=== PATIENT | female | born 1940 | race Caucasian/White ===

== ENCOUNTER 2017-12-05 16:54 | Emergency (ER) | payer MEDICARE ==
[2017-12-05 17:46] LABS: BASO % 0.4 % (0-6); EOS % 3.2 % (0-6); GRAN % 58.5 % (47-80); HEMATOCRIT 37.3 % (35.0-47.0); HEMOGLOBIN 12.9 gm/dl (11.6-16.0); LYMPH % 27.8 % (16-45); MEAN CELL VOLUME 97.1 fl (81-97); MEAN CORPUSCULAR HEMOGLOBIN 33.6 pg (27-33); MEAN CORPUSCULAR HGB CONC 34.6 g/dl (32-36); MEAN PLATELET VOLUME 9.6 fl (7.4-10.4); MONO % 10.1 % (0-9); PLATELET COUNT 365 K/uL (130-400); RED BLOOD COUNT 3.84 M/uL (3.80-5.40); RED CELL DISTRIBUTION WIDTH 12.4 % (11.5-14.5); WHITE BLOOD COUNT W/O DIFF 8.5 K/uL (4.2-12.2)
[2017-12-05 18:02] LABS: BLOOD UREA NITROGEN 15 mg/dL (8-23); CREATININE 0.6 mg/dL (0.5-0.9); EST GLOMERULAR FILTRATION RATE > 60 mL/min
[2017-12-05 18:05] LABS: GLUCOSE,RANDOM 112 mg/dL (74-109)
[2017-12-05] MEDS ORDERED: ACETAMINOPHEN 325 MG TAB PO ONE (18:19)
--- NOTE | 2017-12-05 19:02 | Emergency Department Record ---
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 Time Seen by Provider: 12/05/17 17:05 Mode of Arrival: Ambulatory - History of Present Illness Initial Comments: fall and hit a table with her head and has a right forehead laceration with large hematoma Onset/Timin -: Minutes(s) Fall From: Standing When Fall Occurred: Just prior to arrival Fall Witnessed: No Place Fall Occurred: Home Loss of Consciousness: None Prolonged Down Time?: No Symptoms Prior to Fall: None Location: Head, Back Severity: Mild Severity scale (1-10): 2 Associated Symptoms: Denies - Laura Coma Scale Eye Response: (4) Open spontaneously Motor Response: (6) Obeys commands Verbal Response: (5) Oriented [place] Total: 15 - Related Data Previous Rx's Medication Instructions Recorded Ondansetron [Zofran Odt] 4 mg SL .Q4-6H PRN #10 tab.rapdis 07/02/16 Allergies Allergy/AdvReac Type Severity Reaction Status Date / Time No Known Drug Allergies Allergy Verified 12/05/17 17:46 Travel Screening - Travel/Exposure Within Last 30 Days Have you traveled within the last 30 days?: No Review of Systems Reviewed: No additional complaints except as noted below Constitutional: Reports: As per HPI. Denies: Chills, Fever, Malaise, Night sweats, Weakness, Weight change Eyes: Reports: As per HPI. Denies: Eye discharge, Eye pain, Photophobia, Vision change ENT: Reports: As per HPI. Denies: Congestion, Dental pain, Ear pain, Epistaxis , Hearing loss, Throat pain Respiratory: Reports: As per HPI. Denies: Cough, Dyspnea, Hemoptysis, Stridor, Wheezes Cardiovascular: Reports: As per HPI. Denies: Arrhythmia, Chest pain, Dyspnea on exertion, Edema, Murmurs, Orthopnea, Palpitations, Paroxysmal nocturnal dyspnea, Rheumatic Fever, Syncope Endocrine: Reports: As per HPI. Denies: Fatigue, Heat or cold intolerance, Polydipsia, Polyuria Gastrointestinal: Reports: As per HPI. Denies: Abdominal pain, Constipation, Diarrhea, Hematemesis, Hematochezia, Melena, Nausea, Vomiting Genitourinary: Reports: As per HPI. Denies: Abnormal menses, Discharge, Dyspareunia, Dysuria, Frequency, Hematuria, Incontinence, Retention, Urgency Musculoskeletal: Reports: As per HPI. Denies: Arthralgia, Back pain, Gout, Joint swelling, Myalgia, Neck pain Skin: Reports: As per HPI. Denies: Bruising, Change in color, Change in hair/ nails, Lesions, Pruritus, Rash Neurological: Reports: As per HPI. Denies: Abnormal gait, Confusion, Headache, Numbness, Paresthesias, Seizure, Tingling, Tremors, Vertigo, Weakness Psychiatric: Reports: As per HPI. Denies: Anxiety, Auditory hallucinations, Depression, Homicidal thoughts, Suicidal thoughts, Visual hallucinations Hematological/Lymphatic: Reports: As per HPI. Denies: Anemia, Blood Clots, Easy bleeding, Easy bruising, Swollen glands Past Medical History - SOCIAL HISTORY Smoking Status: Never smoker Alcohol Use: None Drug Use: None - RESPIRATORY Hx Respiratory Disorders: No - CARDIOVASCULAR Hx Cardio Disorders: Yes Hx Abnormal EKG: Yes Hx Cardiac Cath: Yes Hx Heart Attack: Yes Hx Hypertension: Yes Comment:: high cholesterol - NEURO Hx Neuro Disorders: No - GI Hx GI Disorders: No - Hx Genitourinary Disorders: Yes Hx UTI: Yes - ENDOCRINE Hx Endocrine Disorders: Yes Hx Thyroid Disease: Yes (hypo) - MUSCULOSKELETAL Hx Musculoskeletal Disorders: No - PSYCH Hx Psych Problems: No - HEMATOLOGY/ONCOLOGY Hx Hematology/Oncology Disorders: Yes Hx Cancer: Yes (skin) Hx Chemotherapy: No Hx Radiation Therapy: No Family Medical History Any Significant Family History?: Yes Hx Cancer: Mother, Brother/Sister Hx Heart Disease: Mother, Brother/Sister Hx Stroke: Father Physical Exam - General General Appearance: Alert, Oriented x3, Cooperative, No acute distress - Head Head exam: Normal inspection - Eye Eye exam: Normal appearance, PERRL Pupils: Normal accommodation - ENT ENT exam: Normal exam, Mucous membranes moist, Normal external ear exam, Normal orophraynx, TM's normal bilaterally Ear exam: Normal external inspection. negative: External canal tenderness Nasal Exam: Normal inspection. negative: Discharge, Sinus tenderness Mouth exam: Normal external inspection, Tongue normal Teeth exam: Normal inspection. negative: Dental caries Throat exam: Normal inspection. negative: Tonsillar erythema, Tonsillar exudate - Neck Neck exam: Normal inspection, Full ROM. negative: Tenderness - Respiratory Respiratory exam: Normal lung sounds bilaterally. negative: Respiratory distress - Cardiovascular Cardiovascular Exam: Regular rate, Normal rhythm, Normal heart sounds - GI/Abdominal GI/Abdominal exam: Soft, Normal bowel sounds. negative: Tenderness - Rectal Rectal exam: Deferred - exam: Deferred - Extremities Extremities exam: Normal inspection, Full ROM, Normal capillary refill. negative: Tenderness - Back Back exam: Reports: Normal inspection, Full ROM. Denies: Muscle spasm, Rash noted, Tenderness - Neurological Neurological exam: Alert, Normal gait, Oriented X3, Reflexes normal - Psychiatric Psychiatric exam: Normal affect, Normal mood - Skin Skin exam: Other (3 inch laceration of the left forehead) Course Vital Signs 12/05/17 17:49 Temperature 98.6 F Pulse Rate 91 H Respiratory 16 Rate Blood Pressure 175/96 Pulse Ox 94 L - Reevaluation(s) Reevaluation #1: 12/05/17 18:58 complicated laceration of forehead. 3 inches 1% lidocaine with epi cleaned with shurclens repaired with 5.0 ethilon times 7 sutures Medical Decision Making - Data Complexity MDM Data: X-Ray Ordered and/or Reviewed (CT negative) - Lab Data Result diagrams: 12/05/17 17:30 12/05/17 17:30 Lab Results 12/05/17 12/05/17 Range/Units 17:30 17:30 WBC 8.5 (4.2-12.2) K/uL RBC 3.84 (3.80-5.40) M/uL Hgb 12.9 (11.6-16.0) gm/dl Hct 37.3 (35.0-47.0) % MCV 97.1 H (81-97) fl MCH 33.6 H (27-33) pg MCHC 34.6 (32-36) g/dl RDW 12.4 (11.5-14.5) % Plt Count 365 (130-400) K/uL MPV 9.6 (7.4-10.4) fl Gran % 58.5 (47-80) % Lymphocytes % 27.8 (16-45) % Monocytes % 10.1 H (0-9) % Eosinophils % 3.2 (0-6) % Basophils % 0.4 (0-6) % Sodium 139 (136-145) mmol/L Potassium 4.1 (3.4-4.5) mmol/L Chloride 101 (98-107) mmol/L Carbon Dioxide 23.0 (22-29) mmol/L Anion Gap 15.0 (7-16) BUN 15 (8-23) mg/dL Creatinine 0.6 (0.5-0.9) mg/dL Estimated GFR > 60 mL/min Random Glucose 112 H (74-109) mg/dL Calcium 9.1 (8.8-10.2) mg/dL Disposition Clinical Impression: Laceration of face Qualifiers: Encounter type: initial encounter Qualified Code(s): S01.81XA - Laceration without foreign body of other part of head, initial encounter Contusion of head Qualifiers: Encounter type: initial encounter Contusion of head detail: other part of head Qualified Code(s): S00.83XA - Contusion of other part of head, initial encounter Disposition: Home, Self-Care Condition: (1) Good Instructions: Laceration (ED), Head Injury (ED) Additional Instructions: tylenol for pain sutures out in 10 days Forms: Patient Portal Access Time of Disposition: 19:04 Quality - Quality Measures Quality Measures: N/A - Blood Pressure Screening Does Patient Have Any of the Following: No Blood Pressure Classification: Hypertensive Reading Systolic Measurement: 175 Diastolic Measurement: 96 Screening for High Blood Pressure: < First Hypertensive BP, F/U Documented > [ G8950] First Hypertensive Follow-up Interventions: Referral to alternative/primary care provider.
--- NOTE | 2017-12-06 07:33 | CT SCAN REPORT ---
EXAM: CT OF THE BRAIN WITHOUT CONTRAST HISTORY: INJURY. TECHNIQUE: Sequential axial images were obtained from the foramen magnum to the vertex without contrast administration. FINDINGS: The brain volume is normal. There is no large territorial infarct, hemorrhage, mass effect, or midline shift. No extraaxial fluid collection. There is a large left frontal scalp hematoma. No underlying osseous abnormality. IMPRESSION: 1. NO ACUTE INTRACRANIAL ABNORMALITY IS APPRECIATED. 2. LARGE LEFT FRONTAL SCALP HEMATOMA. JOB NUMBER: [id number] MTDD
--- NOTE | 2017-12-06 07:40 | CT SCAN REPORT ---
EXAM: CT OF THE CERVICAL SPINE WITHOUT CONTRAST HISTORY: TRAUMA. TECHNIQUE: Sequential axial images were obtained through the cervical spine without intravenous contrast administration. Sagittal and coronal reformatted images were performed. FINDINGS: There is multilevel degenerative change. There is minimal anterolisthesis of C3 in respect to C4. This is likely on a degenerative basis. The prevertebral soft tissues are normal. The airway is patent. IMPRESSION: 1. MULTILEVEL DEGENERATIVE CHANGE. MINIMAL ANTEROLISTHESIS OF C3 IN RESPECT TO C4. THIS IS LIKELY ON A DEGENERATIVE BASIS. NO EVIDENCE OF FRACTURE OR PERCHED FACET. 2. NOT MENTIONED ABOVE IS MINIMAL BIAPICAL PLEURAL THICKENING. JOB NUMBER: [id number] MTDD
--- NOTE | 2017-12-06 07:48 | CT SCAN REPORT ---
EXAM: CT OF THE CHEST, ABDOMEN AND PELVIS HISTORY: TRAUMA. TECHNIQUE: Sequential axial images were obtained from the thoracic inlet through the ischiorectal fossa without intravenous or oral contrast administration. FINDINGS: CT OF THE CHEST: The thoracic aorta appears normal. There is minimal atheromatous change. The heart and pericardium appears grossly unremarkable. No pericardial effusion. There is a moderate to large sliding type hiatal hernia. No infiltrate or pleural effusion. No pneumothorax. No rib fracture deformity. The thoracic spine is intact. The sternum is intact. CT OF THE ABDOMEN AND PELVIS: The nonopacified liver appears normal. The pancreas and spleen appear normal. The adrenal glands and kidneys appear normal. No CT findings suggestive of obstructive uropathy. The urinary bladder appears normal. The uterus and adnexal structures are normal. The small bowel appears normal. The colon appears normal. There is sigmoid colon diverticulosis. No evidence of diverticulitis. There are large low density lesions in the sacral region. These likely represent perineural diverticula. There is multilevel degenerative change of the lumbar spine. There is a scoliotic curvature. IMPRESSION: 1. NO ACUTE INTRATHORACIC DISEASE PROCESS. 2. MODERATE SLIDING TYPE HIATAL HERNIA. 3. MILD BIAPICAL PLEURAL THICKENING. 4. NO ACUTE ABDOMINAL OR PELVIC DISEASE PROCESS IS APPRECIATED. 5. MODERATE SLIDING TYPE HIATAL HERNIA. 6. LARGE CYSTIC LESIONS IN THE SACRAL FORAMINA LIKELY RELATED TO PERINEURAL DIVERTICULA. 7. SIGMOID COLON DIVERTICULOSIS WITHOUT EVIDENCE OF DIVERTICULITIS. 8. MULTILEVEL DEGENERATIVE CHANGE OF THE LUMBAR SPINE WITH A SCOLIOTIC CURVATURE. JOB NUMBER: [id number] MTDD
== END 2017-12-05 19:31 | disposition home or self-care (01) ==
LOC: ER 16:54
DX: S01.81XA Laceration without foreign body of other part of head, initial encounter (principal); S00.83XA Contusion of other part of head, initial encounter; M54.2 Cervicalgia; R10.9 Unspecified abdominal pain; W01.198A Fall on same level from slipping, tripping and stumbling with subsequent striking against other object, initial encounter; I10 Essential (primary) hypertension; Y92.000 Kitchen of unspecified non-institutional (private) residence as the place of occurrence of the external cause
CPT/HCPCS: 12015; 70450; 71250; 72125; 74176; 80048; 85025; 99284

== ENCOUNTER 2017-12-15 09:27 | Emergency (ER) | payer MEDICARE ==
--- NOTE | 2017-12-15 09:54 | Emergency Department Record ---
History of Present Illness - General Chief Complaint: Suture removal Stated Complaint: SUTURE REMOVAL Time Seen by Provider: 12/15/17 09:46 Source: Patient, RN notes reviewed - History of Present Illness Initial Comments: pateint here to remove sutures from her forehead. Healing nicely and no signs of infection. Complaint: Suture/staple removal - Related Data Previous Rx's Medication Instructions Recorded Ondansetron [Zofran Odt] 4 mg SL .Q4-6H PRN #10 tab.rapdis 07/02/16 Allergies Allergy/AdvReac Type Severity Reaction Status Date / Time No Known Drug Allergies Allergy Verified 12/15/17 09:34 Review of Systems Reviewed: No additional complaints except as noted below Constitutional: Reports: As per HPI. Denies: Chills, Fever, Malaise, Night sweats, Weakness, Weight change Eyes: Reports: As per HPI. Denies: Eye discharge, Eye pain, Photophobia, Vision change ENT: Reports: As per HPI. Denies: Congestion, Dental pain, Ear pain, Epistaxis , Hearing loss, Throat pain Respiratory: Reports: As per HPI. Denies: Cough, Dyspnea, Hemoptysis, Stridor, Wheezes Cardiovascular: Reports: As per HPI. Denies: Arrhythmia, Chest pain, Dyspnea on exertion, Edema, Murmurs, Orthopnea, Palpitations, Paroxysmal nocturnal dyspnea, Rheumatic Fever, Syncope Endocrine: Reports: As per HPI. Denies: Fatigue, Heat or cold intolerance, Polydipsia, Polyuria Gastrointestinal: Reports: As per HPI. Denies: Abdominal pain, Constipation, Diarrhea, Hematemesis, Hematochezia, Melena, Nausea, Vomiting Genitourinary: Reports: As per HPI. Denies: Abnormal menses, Discharge, Dyspareunia, Dysuria, Frequency, Hematuria, Incontinence, Retention, Urgency Musculoskeletal: Reports: As per HPI. Denies: Arthralgia, Back pain, Gout, Joint swelling, Myalgia, Neck pain Skin: Reports: As per HPI. Denies: Bruising, Change in color, Change in hair/ nails, Lesions, Pruritus, Rash Neurological: Reports: As per HPI. Denies: Abnormal gait, Confusion, Headache, Numbness, Paresthesias, Seizure, Tingling, Tremors, Vertigo, Weakness Psychiatric: Reports: As per HPI. Denies: Anxiety, Auditory hallucinations, Depression, Homicidal thoughts, Suicidal thoughts, Visual hallucinations Hematological/Lymphatic: Reports: As per HPI. Denies: Anemia, Blood Clots, Easy bleeding, Easy bruising, Swollen glands Past Medical History - SOCIAL HISTORY Smoking Status: Never smoker Alcohol Use: None Drug Use: None - RESPIRATORY Hx Respiratory Disorders: No - CARDIOVASCULAR Hx Cardio Disorders: Yes Hx Abnormal EKG: Yes Hx Cardiac Cath: Yes Hx Heart Attack: Yes Hx Hypertension: Yes Comment:: high cholesterol - NEURO Hx Neuro Disorders: No - GI Hx GI Disorders: No - Hx Genitourinary Disorders: Yes Hx UTI: Yes - ENDOCRINE Hx Endocrine Disorders: Yes Hx Thyroid Disease: Yes (hypo) - MUSCULOSKELETAL Hx Musculoskeletal Disorders: No - PSYCH Hx Psych Problems: No - HEMATOLOGY/ONCOLOGY Hx Hematology/Oncology Disorders: Yes Hx Cancer: Yes (skin) Hx Chemotherapy: No Hx Radiation Therapy: No Family Medical History Any Significant Family History?: Yes Hx Cancer: Mother, Brother/Sister Hx Heart Disease: Mother, Brother/Sister Hx Stroke: Father Physical Exam - General General Appearance: Alert, Oriented x3, Cooperative, No acute distress - Head Head exam: Normal inspection - Eye Eye exam: Normal appearance, PERRL Pupils: Normal accommodation - ENT ENT exam: Normal exam, Mucous membranes moist, Normal external ear exam, Normal orophraynx, TM's normal bilaterally Ear exam: Normal external inspection. negative: External canal tenderness Nasal Exam: Normal inspection. negative: Discharge, Sinus tenderness Mouth exam: Normal external inspection, Tongue normal Teeth exam: Normal inspection. negative: Dental caries Throat exam: Normal inspection. negative: Tonsillar erythema, Tonsillar exudate - Neck Neck exam: Normal inspection, Full ROM. negative: Tenderness - Respiratory Respiratory exam: Normal lung sounds bilaterally. negative: Respiratory distress - Cardiovascular Cardiovascular Exam: Regular rate, Normal rhythm, Normal heart sounds - GI/Abdominal GI/Abdominal exam: Soft, Normal bowel sounds. negative: Tenderness - Rectal Rectal exam: Deferred - exam: Deferred - Extremities Extremities exam: Normal inspection, Full ROM, Normal capillary refill. negative: Tenderness - Back Back exam: Reports: Normal inspection, Full ROM. Denies: Muscle spasm, Rash noted, Tenderness - Neurological Neurological exam: Alert, Normal gait, Oriented X3, Reflexes normal - Psychiatric Psychiatric exam: Normal affect, Normal mood - Skin Skin exam: Dry, Intact, Normal color, Warm Disposition Clinical Impression: Visit for suture removal Disposition: Home, Self-Care Condition: (1) Good Instructions: Stitches Removal (ED) Additional Instructions: follow up with family Time of Disposition: 09:53 Quality - Quality Measures Quality Measures: N/A - Blood Pressure Screening Does Patient Have Any of the Following: No, Active Dx of HTN Systolic Measurement: ~ Screening for High Blood Pressure: Patient Exclusion, Hx of HTN [G9744]
== END 2017-12-15 10:01 | disposition home or self-care (01) ==
LOC: ER 09:27
DX: Z48.02 Encounter for removal of sutures (principal)